=== PATIENT | female | born 1965 | race Hispanic/Latino ===

== ENCOUNTER 2017-12-06 12:20 | Observation (INO) | payer OTHER, SELFPAY ==
[~2017-12-06 12:20] MED LIST: ISOVUE-370 76%-LOCM 1 ML ONE
[2017-12-06] MEDS ORDERED: Lidocaine Viscous Sol 2% 15 ml UD Cup ONE (12:49)
[2017-12-06 13:08] LABS: #Basophils 0.1 thou/uL (0.0-0.2); #Eosinphils 0.1 thou/uL (0.0-0.7); #Lymphocytes 4.3 thou/uL (1.20-3.40); #Monocytes 0.4 thou/uL (0.11-0.59); #Neutrophils 4.6 thou/uL (1.40-6.50); %Basophils 0.6 % (0.0-1.0); %Eosinophils 0.9 % (0.0-10.0); %Lymphocytes 45.7 % (21.0-51.0); %Monocytes 4.2 % (0.0-10.0); %Neutrophils 48.7 % (42.0-75.0); Hemoglobin 15.1 g/dL (12.0-16.0); Mean Corpuscular HGB CONC 33.9 g/dL (32.0-36.0); Mean Corpuscular Hemoglobin 31.6 pg (27.0-31.0); Mean Corpuscular Volume 93.1 fL (78.0-98.0); Mean Platelet Volume 8.9 fL (7.4-10.4); Platelet Count 257 thou/uL (130-400); RBC Distribution Width 11.7 % (11.5-14.5); Red Blood Cell (RBC) Count 4.78 mill/uL (4.20-5.40); White Blood Cell (WBC) Count 9.5 thou/uL (4.8-10.8)
[2017-12-06 13:21] LABS: PTT 28.3 SEC (22.9-36.1)
[2017-12-06 13:30] LABS: ALT (SGPT) 73 U/L (8-55); AST (SGOT) 47 U/L (5-34); Albumin 4.6 g/dL (3.5-5.0); Alkaline Phosphatase 138 U/L (40-150); Anion Gap 17 mmol/L (10-20); BUN (Urea Nitrogen) 11 mg/dL (9.8-20.1); Bilirubin, Total 0.4 mg/dL (0.2-1.2); Calc. Creatinine Clearance 0 mL/min (70-130); Calcium 10.1 mg/dL (7.8-10.44); Carbon Dioxide 21 mmol/L (22-29); Chloride 103 mmol/L (98-107); Estimated GFR-MDRD 71; Globulin 3.1 g/dL (2.4-3.5); Glucose 219 mg/dL (70-105); Potassium 3.7 mmol/L (3.5-5.1); Protein, Total 7.7 g/dL (6.0-8.3); Sodium 137 mmol/L (136-145)
[2017-12-06 13:35] LABS: CKMB 0.9 ng/mL (0-6.6); Troponin I Less than 0.010 ng/mL (< 0.028)
--- NOTE | 2017-12-06 14:20 | CT ---
CTA HEAD WITH AND WITHOUT CONTRAST: Date: 12/06/17 Multiple axial tomograms obtained through the head without IV contrast. This is followed by CTA of th e head with IV contrast with multiplanar reconstruction and 3D postprocessing following cerebral angelita o protocol. INDICATION: Stroke protocol. Left lower extremity weakness, sudden onset. FINDINGS: CT HEAD WITHOUT CONTRAST: Ventricles have normal size and position. No evidence of intracranial mass, hemorrhage, or acute infa rct. There is a small air fluid level in the left maxillary sinus. The paranasal sinuses otherwise show no rmal aeration. IMPRESSION: 1. No acute intracranial abnormality. 2. Small air fluid level in the left maxillary sinus. CT ANGIO OF HEAD: Intracranial internal carotid arteries are patent and symmetric. The anterior cerebral arteries and m iddle cerebral arteries are patent and symmetric. There is no evidence of focal stenosis or occlusion . Basilar artery is patent. The posterior cerebral arteries appear symmetric. IMPRESSION: Unremarkable CT angio of the cerebral circulation. Dr. Trujillo notified of this report at 1325 hours. CODE CR. POS: [facility]
--- NOTE | 2017-12-06 15:42 | HP ---
PRIMARY CARE PHYSICIAN: Dr. Rj Mehta. CHIEF COMPLAINT: Nosebleed and left-sided weakness and numbness. HISTORY OF PRESENT ILLNESS: Ms. Martínez is a pleasant 51-year-old female that has a history of diabet es mellitus and migraine headaches. She was in her usual state of health until around [facility] when she noticed that she started having a nosebleed. She says that she had trouble stopping it and even after she and her family had applied pressure and held her head back; then on Tuesday, the no sebleed returned and she says that she went to see her primary care physician and they could not see her by this time the nosebleed had actually stopped, but by that time she got back home, it started b ack again and also on around 11:45, she was on her way to the hospital in order to seek medical care with regards to the nosebleed, she says that her left arm and leg began to feel numb and heavy and th is continued until she got into the emergency room. By the time, the patient had been evaluated by [facility] ER physician. The numbness and weakness in the left arm and leg began to subside; however, it has not gone away completely. She does admit to having some pain in her neck area as well and in the le ft side of her abdomen. She denies any chest pain. She denies feeling short of breath. She does ad denis to having some headache off and on during this time. Also, with regards to the nosebleed, the pa tiesamuel denies any sinus symptoms such as runny nose or congestion, no cough, no fever. She does admit to working around some harsh chemicals with a very heavy odor and she says that she was working arou nd these chemicals for about 5 hours on the day that the nosebleed had started. She denies any pain in the area and has never had anything like this happen to her before. Also, with regards to the lef t arm numbness and weakness, this has never happened to her before either. REVIEW OF SYSTEMS: All systems were reviewed and negative except for that mentioned in the history o f present illness. PAST MEDICAL HISTORY: Significant for diabetes mellitus type 2 and migraine. PAST SURGICAL HISTORY: Negative. FAMILY HISTORY: Significant for cancer and some type of bone cancer. SOCIAL HISTORY: She is . She is a nonsmoker, nondrinker. Denies any kind of drug use. ALLERGIES: No known drug allergies. MEDICATIONS: Include metformin 500 mg daily, divalproex 500 mg extended release daily. PHYSICAL EXAMINATION: GENERAL: She is alert and oriented. She appears to be in no acute distress. She is well developed and well nourished. VITAL SIGNS: Blood pressure was 129/78, heart rate 98, respiratory rate of 15, temperature is 98.3. HEENT: Her pupils are equal, round, and reactive. Extraocular muscles are intact. Her sclerae are anicteric. Throat: There is no erythema and exudates. NECK: No adenopathy, no bruits, no jugular venous distention. LUNGS: Clear to auscultation. There is no wheezing, no rales. CARDIOVASCULAR: She has a normal S1 and S2. I did not appreciate an S3 or S4. No murmurs, clicks, no rubs. ABDOMEN: Obese, it is soft, nontender, nondistended. Positive for bowel sounds. There is no reboun d, no guarding, no organomegaly. EXTREMITIES: There is no clubbing or cyanosis. There is no edema noted. No calf tenderness. Joint s: There was no joint effusion. NEUROLOGICALLY: Her muscle strength is 5/5 in both the upper and lower extremities, but slightly dim inished in the left arm as far as the vest baster strength and against resistance as well as in the left low er leg. Reflexes were slightly more pronounced actually on the left than on the right, but they were present and her cranial nerves were intact. SKIN AND INTEGUMENT: There were no skin changes. No rash. She has got normal skin turgor and good capillary refill. LABORATORY: She had an EKG that was sinus tachycardia. The heart rate was 99. There was no ST wave changes, this is by my reading. Also, she had a CT angiogram which was negative. Her sodium was 13 7, potassium 3.7, chloride is 103, CO2 is 21, BUN of 11, creatinine 0.84, glucose is 219. INR is 1.0 . White blood cell count 9.5, hemoglobin 15.1, hematocrit is 44.5, platelet count is 256. Troponin is less than 0.010. ASSESSMENT AND PLAN: This is a pleasant 51-year-old female that presents with epistaxis and left arm and leg weakness. The epistaxis appears to be more or less controlled here in the emergency room. The left arm and leg weakness still requires some further evaluation. 1. For the epistaxis, this was the presenting complaint. We will continue with the nasal tampon thr ough the night and consider removal tomorrow. Should she maintain hemostasis, then likely no further workup is needed. 2. Left arm and leg weakness, this is unclear. We will get an MRI to rule out stroke and also get a n x-ray of the C-spine as she could have some type of cervical radiculopathy considering the neck renuka n as well. We will also get carotid Dopplers and the echo which can be followed up outpatient if nec essary. 3. Diabetes mellitus. She has had a recent contrasted CT scan. We will hold on the metformin and t reat with a sliding scale insulin.
[2017-12-06] MEDS ORDERED: Dextrose 50% Abboject 50 ML SYRINGE SLOW IVP PRN (16:48)
[2017-12-06] MEDS ORDERED: Dextrose 5% in Water 1,000 ML IV PRN (16:48)
[2017-12-06] MEDS ORDERED: HumaLOG 300 UNITS/3 ML VIAL SC PRN ×2 (16:48)
[2017-12-06 16:59] VITALS: BMI 32.4
--- NOTE | 2017-12-06 18:25 | RAD ---
CERVICAL SPINE 3 VIEWS: Date: 12/06/17 HISTORY: Left arm and leg numbness and weakness. FINDINGS/IMPRESSION: Degenerative changes are present. No fracture, subluxation, or bony destruction is identified. POS: JESENIA
[2017-12-06] MEDS ORDERED: Divalproex Sodium DR 500 MG TAB PO SCH (19:00)
--- NOTE | 2017-12-06 19:03 | MRI ---
MRI OF BRAIN WITHOUT CONTRAST: 12/06/17 HISTORY: TIA. Dizziness, left sided weakness. Correlation is made CT from earlier today. FINDINGS: No restricted diffusion is seen. No evidence of infarct, hemorrhage, midline shift or abnormal extra- axial fluid collections are seen. The ventricular size is normal and the basilar cisterns patent. No significant signal abnormalities are seen on the highly sensitive FLAIR images. No blood products are noted on the gradient echo sequences. There is a small amount of fluid in the left maxillary sinus. A partially empty sella is present. IMPRESSION: No evidence of acute intracranial process. POS: [facility]
[2017-12-06] MEDS ORDERED: Fioricet 325/50/40 mg Tablet PO SCH (20:45)
--- NOTE | 2017-12-06 20:52 | ULT ---
CAROTID DOPPLER: 12/06/17 Ultrasound doppler study is performed of the extracranial carotid arteries. INDICATIONS: TIA. Ultrasound images show mild echogenic plaque in the bulb regions. The velocities in the common carotid arteries and internal carotid arteries are within normal range. No evidence of hemodynamically significant stenosis. Vertebrals show antegrade flow. IMPRESSION: 1. Mild echogenic plaque. 2. No evidence of hemodynamically significant stenosis identified. POS: [facility]
[2017-12-06] MEDS ORDERED: Morphine 2 MG/ML SYRINGE SLOW IVP SCH (23:45)
[2017-12-07 04:39] LABS: #Eosinphils 0.1 thou/uL (0.0-0.7); #Lymphocytes 3.5 thou/uL (1.20-3.40); #Monocytes 0.5 thou/uL (0.11-0.59); #Neutrophils 5.3 thou/uL (1.40-6.50); %Basophils 0.4 % (0.0-1.0); %Eosinophils 1.1 % (0.0-10.0); %Lymphocytes 37.3 % (21.0-51.0); %Monocytes 5.5 % (0.0-10.0); %Neutrophils 55.6 % (42.0-75.0); Hemoglobin 13.7 g/dL (12.0-16.0); Mean Corpuscular HGB CONC 32.8 g/dL (32.0-36.0); Mean Corpuscular Volume 94.6 fL (78.0-98.0); Mean Platelet Volume 8.5 fL (7.4-10.4); Platelet Count 251 thou/uL (130-400); RBC Distribution Width 11.7 % (11.5-14.5); Red Blood Cell (RBC) Count 4.42 mill/uL (4.20-5.40); White Blood Cell (WBC) Count 9.5 thou/uL (4.8-10.8)
[2017-12-07 04:58] LABS: Anion Gap 12 mmol/L (10-20); BUN (Urea Nitrogen) 9 mg/dL (9.8-20.1); Calc. Creatinine Clearance 110 mL/min (70-130); Calcium 9.2 mg/dL (7.8-10.44); Carbon Dioxide 25 mmol/L (22-29); Cardiac Risk 4.3 (Less than 4.5); Chloride 105 mmol/L (98-107); Cholesterol 150 mg/dl (< 200 Desired); Estimated GFR-MDRD 85; Glucose 123 mg/dL (70-105); HDL Cholesterol 35 mg/dL (>60 Neg Risk); LDL Cholesterol, Calculated 89 mg/dL; Potassium 3.8 mmol/L (3.5-5.1); Sodium 138 mmol/L (136-145); Triglycerides 130 mg/dL (Less than 150)
[2017-12-07] MEDS ORDERED: Loratadine 10 MG TAB PO PRN (08:53)
[2017-12-07] MEDS ORDERED: Divalproex Sodium DR 500 MG TAB PO SCH (09:00)
[2017-12-07] MEDS: Acetaminophen 500 MG TAB PO PRN ×2 (09:15→13:59)
[2017-12-07 09:27] LABS: Acetaminophen Less than 6.0 mcg/mL (10.0-30.0)
--- NOTE | 2017-12-07 15:52 | PDOC.PN ---
- Subjective Encounter Start Date: 12/07/17 Encounter Start Time: 10:00 Subjective: Follow up on overnight admission for epistaxis and transient -: left sided weakness - Objective Resuscitation Status: Resuscitation Status FULL:Full Resuscitation MAR Reviewed: Yes Vital Signs & Weight: Vital Signs (12 hours) Temp Pulse Resp BP Pulse Ox 12/07/17 12:00 98.2 F 94 18 112/75 94 L 12/07/17 07:57 98.2 F 88 20 109/80 94 L 12/07/17 04:00 98.0 F 81 20 124/74 95 Weight Weight 75.296 kg I&O: 12/06/17 12/07/17 12/08/17 06:59 06:59 06:59 Intake Total 182 Balance 182 Result Diagrams: 12/07/17 04:22 12/07/17 04:22 Additional Labs: Accuchecks 12/07/17 12/07/17 12/06/17 11:18 05:35 20:49 POC Glucose 142 H 107 104 <Cris Velasquez - Last Filed: 12/07/17 17:57> - Objective Resuscitation Status: Resuscitation Status FULL:Full Resuscitation Vital Signs & Weight: Vital Signs (12 hours) Temp Pulse Resp BP Pulse Ox 12/07/17 16:00 98.5 F 99 18 108/69 92 L 12/07/17 12:00 98.2 F 94 18 112/75 94 L 12/07/17 07:57 98.2 F 88 20 109/80 94 L Weight Weight 166 lb I&O: 12/06/17 12/07/17 12/08/17 06:59 06:59 06:59 Intake Total 182 Balance 182 Result Diagrams: 12/07/17 04:22 12/07/17 04:22 Additional Labs: Accuchecks 12/07/17 12/07/17 12/07/17 16:57 11:18 05:35 POC Glucose 137 H 142 H 107 12/06/17 20:49 POC Glucose 104 <Judy De Santiago - Last Filed: 12/07/17 19:37> Phys Exam - Physical Examination HEENT: oral pharynx no lesions Nasal Rocket in place in left nare. No active bleeding noted on exam, mild pain with ROM Respiratory: clear to auscultation bilateral Cardiovascular: RRR Gastrointestinal: soft, non-tender, positive bowel sounds Musculoskeletal: no edema, pulses present Neurological: normal sensation, moves all 4 limbs Lymphatic: no nodes Psychiatric: normal affect Skin: no rash, cap refill <2 seconds <Cris Velasquez - Last Filed: 12/07/17 17:57> Dx/Plan (1) Epistaxis Code(s): R04.0 - EPISTAXIS Status: Acute Plan: Follow labs, coags, leave nasal rocket in place, will have patient f/u with ENT as an outpatient to remove the rocket and examine nare (2) Headache Code(s): R51 - HEADACHE Status: Chronic Qualifiers: Headache chronicity pattern: chronic headache Intractability: not intractable Plan: Patient reports history of migraine headache. Reports sniffles and watery eyes, will order allergy medication and tylenol as needed. Will continue to monitor (3) Diabetes Code(s): E11.9 - TYPE 2 DIABETES MELLITUS WITHOUT COMPLICATIONS Status: Chronic Qualifiers: Diabetes mellitus type: type 2 Chronic kidney disease stage: unspecified stage Plan: Hold Metformin for now due to contrast being given, manage with insulin as needed (4) transient left sided weakness Status: Acute Plan: Will continue to monitor, currently has no symptoms - Plan cont current plan of care, plan discussed w/ family * . <Cris Velasquez - Last Filed: 12/07/17 17:57> - Plan -: patient seen and examined. plan of care discussed with Lulu DALTON. agree * . <Judy De Santiago - Last Filed: 12/07/17 19:37>
[2017-12-07 16:12] VITALS: BP 108/69; TEMP 98.5
--- NOTE | 2017-12-08 01:00 | DIS ---
DATE OF ADMISSION: 12/06/2017 DATE OF DISCHARGE: 12/07/2017 PRIMARY CARE PHYSICIAN: Rj Mehta M.D. DISCHARGE DIAGNOSES: 1. Epistaxis. 2. Diabetes mellitus 2. 3. Chronic headache. CONSULTATIONS: None. CODE STATUS: FULL. PROCEDURES DONE: Carotid Dopplers of bilateral legs, which showed no acute findings. MRI of the br ain which no acute findings. CTA of the brain and neck with no acute findings. An echocardiogram wi th LV function 55%-60%. H&P see the progress note for today. HOSPITAL COURSE: Ms. Martínez presented to the ED on 12/06/2017 for 3 episodes of epistaxis and report ed some transient left-sided weakness and numbness, left arm and leg, mostly resolved by the time she got to the ED and today is completely resolved. Reported a headache today with some watery eyes and sniffles, which improved with some Tylenol and Claritin. No new episodes of epistaxis since the kacy al Rocket was placed in the left naris by the ED. The patient has remained stable and we will leave t he nasal Rocket in place and discharge home with close follow up with Dr. Macias, ENT and PCP Dr. Gabriel bustos. ALLERGIES: None. DISCHARGE MEDICATIONS: Vitamin D, OTC, MiraLax one tablespoon as needed p.r.n. daily, Advil 200 mg p .o. q.6 hours p.r.n., metformin 500 mg p.o. daily, Depakote DR 500 mg p.o. daily and added as Clarit in 10 mg p.o. daily p.r.n. which is an outpatient medication. DISCHARGE CONDITION: Stable. DISPOSITION: Home. FOLLOWUP: With Dr. Macias within the next 2-3 days to remove the Rocket and Dr. Mehta within 1 week.
== END 2017-12-07 19:24 | disposition home or self-care (01) ==
LOC: ERS 12:20 → 2SE 14:58
PROVIDERS: ADMIT Internal Medicine; ATTEND Internal Medicine
DX: R04.0 Epistaxis (principal); R20.2 Paresthesia of skin; R29.91 Unspecified symptoms and signs involving the musculoskeletal system; E11.9 Type 2 diabetes mellitus without complications; G43.909 Migraine, unspecified, not intractable, without status migrainosus; Z79.84 Long term (current) use of oral hypoglycemic drugs; Z79.899 Other long term (current) drug therapy
CPT/HCPCS: 30903; 36415; 36416; 70496; 70551; 72040; 80048; 80053; 80061; 80307; 82553; 84484; 85025; 85610; 85730; 90471; 90686; 93005; 93306; 93880; 96360; 96361; 96374; G0008; G0378; J2270

== ENCOUNTER 2018-07-12 02:15 | Emergency (ER) | payer OTHER, SELFPAY ==
[2018-07-12] MEDS ORDERED: Ondansetron PF 4 MG/2 ML Vial ONE (02:50)
[2018-07-12] MEDS ORDERED: Morphine 4 MG/ML VIAL ONE ×2 (02:50→03:36)
[2018-07-12 03:18] LABS: BHCG - Serum Negative (NEGATIVE); Pregs Control Background? CLEAR/WHITE (CLR/WHITE); Pregs Control Bar Appear? YES (CONTROL BAR)
[2018-07-12 03:19] LABS: #Lymphocytes 2.5 thou/uL (1.20-3.40); #Monocytes 0.6 thou/uL (0.11-0.59); #Neutrophils 10.7 thou/uL (1.40-6.50); %Basophils 0.1 % (0.0-1.0); %Eosinophils 0.3 % (0.0-10.0); %Lymphocytes 17.8 % (21.0-51.0); %Monocytes 4.2 % (0.0-10.0); %Neutrophils 77.6 % (42.0-75.0); Hemoglobin 14.5 g/dL (12.0-16.0); Mean Corpuscular HGB CONC 33.7 g/dL (32.0-36.0); Mean Corpuscular Hemoglobin 31.3 pg (27.0-31.0); Mean Corpuscular Volume 92.8 fL (78.0-98.0); Mean Platelet Volume 8.4 fL (7.4-10.4); Platelet Count 254 thou/uL (130-400); RBC Distribution Width 11.9 % (11.5-14.5); Red Blood Cell (RBC) Count 4.62 mill/uL (4.20-5.40); White Blood Cell (WBC) Count 13.8 thou/uL (4.8-10.8)
[2018-07-12 03:35] LABS: ALT (SGPT) 39 U/L (8-55); AST (SGOT) 25 U/L (5-34); Albumin 4.5 g/dL (3.5-5.0); Alkaline Phosphatase 181 U/L (40-150); Anion Gap 17 mmol/L (10-20); BUN (Urea Nitrogen) 11 mg/dL (9.8-20.1); Bilirubin, Total 0.3 mg/dL (0.2-1.2); Calc. Creatinine Clearance 0 mL/min (70-130); Calcium 9.9 mg/dL (7.8-10.44); Carbon Dioxide 21 mmol/L (22-29); Chloride 102 mmol/L (98-107); Estimated GFR-MDRD 76; Globulin 3.2 g/dL (2.4-3.5); Glucose 309 mg/dL (70-105); Potassium 4.2 mmol/L (3.5-5.1); Protein, Total 7.7 g/dL (6.0-8.3); Sodium 136 mmol/L (136-145)
[2018-07-12] MEDS ORDERED: Ketorolac Tromethamine 30 MG/ML VIAL ONE (04:40)
[2018-07-12 04:54] LABS: Bilirubin Negative (Negative); Blood, Urine Small (Negative); Clarity CLOUDY (Clear); Glucose, Urine (Dipstick) 500 mg/dL (Negative); Leukocyte Small (Negative); Nitrite Negative (Negative); Protein, Urine (Dipstick) Negative (Neg-Trace); Specific Gravity, Urine 1.016 (1.002-1.036); Urobilinogen 0.2 mg/dL (0.2-1.0)
[2018-07-12 04:56] LABS: Bacteria/HPF Rare-Few HPF (None Seen); Hyaline Casts/LPF 0-3 HYALINE CAST LPF (0-3 Hyaline); Pathc Cast-AUWi Flag 0.81 (0-2.49)
--- NOTE | 2018-07-12 07:29 | ULT ---
PRELIMINARY REPORT/[facility]/EMERGENCY AFTER HOURS PROCEDURE: EXAM: US Abdomen Limited, Right Upper Quadrant EXAM DATE/TIME: 07/12/2018 3:42 AM CLINICAL HISTORY: 52 years old, female; Abdominal pain; Localized; Right; Patient HX: Ruq to RT flank pain that radiates to lower back tonight TECHNIQUE: Imaging protocol: Real-time ultrasound of the abdomen with image documentation. Examination was focused on the right upper quadrant. COMPARISON: No relevant prior studies available. FINDINGS: Liver: Echogenic/fatty liver. No acute findings. Gallbladder: No acute findings. No gallstones. Common bile duct: Unremarkable. Pancreas: Unremarkable as visualized. Right kidney: Mild hydronephrosis. No stones. No mass. IMPRESSION: Mild right hydronephrosis. Thank you for allowing us to participate in the care of your patient. Dictated and Authenticated by: Ramirez Pimentel MD 07/12/2018 4:20 AM Central Time ([place] & [place]) FINAL REPORT EMERGENCY AFTER HOURS RIGHT UPPER QUADRANT ULTRASOUND: Date: 07/12/18 Time: 0343 hours IMPRESSION: Increased echogenicity within the liver evidence for fatty change. No gallstones. Mild right renal hy dronephrosis. This report is in agreement with a preliminary report given by Wendy. Transcribed Date/Time: 07/12/2018 8:25 AM
--- NOTE | 2018-07-12 07:47 | CT ---
CT OF THE ABDOMEN AND PELVIS WITOUT CONTRAST: right Right-sided flank pain. COMPARISON: None. FINDINGS: There is bibasilar atelectasis. There is fatty infiltration of the liver. Pancreas and the right adrenal gland are normal-appearing. There is a 2.8 cm left adrenal adenoma. The spleen is normal-appearing. There is perinephric stranding and mild right hydronephrosis. There is a 2.5 mm stone within the pro ximal right ureter at approximately the L3 vertebral level. No additional renal or ureteral calculus is noted. There is a tiny 1-2 mm stone involving the inferior pole of the left kidney. A normal appendix is seen within the right lower quadrant. No free fluid is evident. There is scatt ered diverticula involving the colon. There is mild scattered degenerative and osteoarthritic change. IMPRESSION: 1. A 2.5 mm proximal right ureteral calculus with mild right hydronephrosis. 2. Left nephrolithiasis. 3. Fatty liver. 4. Left adrenal adenoma. 5. Colonic diverticulosis. POS: [facility]
== END 2018-07-12 06:17 | disposition home or self-care (01) ==
LOC: ERS 02:15
DX: N13.2 Hydronephrosis with renal and ureteral calculous obstruction (principal); E11.65 Type 2 diabetes mellitus with hyperglycemia; G43.909 Migraine, unspecified, not intractable, without status migrainosus; Z79.899 Other long term (current) drug therapy
CPT/HCPCS: 74176; 76705; 80053; 81003; 81015; 84703; 85025; 87086; 96361; 96374; 96375; 96376; J1885; J2270; J2405